=== PATIENT | male | born 1970 | race Caucasian/White ===

== ENCOUNTER 2021-06-23 19:52 | Emergency (ER) | payer SELFPAY ==
[~2021-06-23] VITALS: Ht 188 cm; Wt 113.0 kg
[2021-06-23 20:01] VITALS: BP 114/78
[2021-06-23] MEDS ORDERED: DIPH,PERTUSS(ACELL),TET VAC/PF 0.5 ML SYRINGE. VAX IM ONE ×2 (20:11→20:15)
[2021-06-23] MEDS ORDERED: LIDOCAINE 2%/EPI 1:100,000 20 ML VIAL. INJ ONE (20:15)
--- NOTE | 2021-06-23 21:14 | PHYS DOC ---
Past Medical History Past Surgical History: Appendectomy (PELON MENDOZA) Smoking Status: Current Every Day Smoker Alcohol Use: None (PELON MENDOZA) General Adult EDM: Chief Complaint: LACERATION/AVULSION HPI: HPI: Patient is a 50 year old male who presents with a laceration to the right distal ho. Patient states that he was at home chopping a tomato for dinner, when he dropped a knife and sliced his leg. Patient states he did not have any pain at the time, and only noticed that he had a laceration when he looked down and saw blood. Patient reports he was not able to get it to stop bleeding on the way to the emergency department. Patient states his tetanus vaccination is not up-to-date. Patient has no other trauma or complaints at this time. (PELON MENDOZA) Review of Systems: Review of Systems: ROS negative except as mentioned in HPI. (PELON MENDOZA) Heart Score: C/O Chest Pain: No (PELON MENDOZA) Current Medications: Current Medications Medications (Trade) Dose Ordered Sig/Anastasiya Start Time Stop Time Status Last Admin Dose Admin Diphtheria/ Tetanus/Acell Pertussis (ADACEL TDap SYRINGE) 0.5 ml STK-MED ONCE 06/23/21 20:11 06/23/21 20:11 DC Lidocaine/ Epinephrine (LIDOCAINE 2%-EPI 1:100,000 multi-dose) 20 ml 1X ONCE 06/23/21 20:15 06/23/21 20:16 DC 06/23/21 20:14 20 ML (PELON MENDOZA) Allergies: Allergies: Allergies Coded Allergies Type Severity Reaction Last Updated Verified No Known Drug Allergies 06/23/21 No (PELON MENDOZA) Physical Exam: PE: Constitutional: Well developed, well nourished, no acute distress, non-toxic appearance. [] HENT: Normocephalic, atraumatic, bilateral external ears normal, oropharynx moist, no oral exudates, nose normal. [] Eyes: PERRLA, EOMI, conjunctiva normal, no discharge. [] Neck: Normal range of motion, no tenderness, supple, no stridor. [] Cardiovascular:Heart rate regular rhythm, no murmur [] Lungs & Thorax: Bilateral breath sounds clear to auscultation [] Abdomen: Bowel sounds normal, soft, no tenderness, no masses, no pulsatile masses. [] Skin: Warm, dry, no erythema, no rash. [] Back: No tenderness, no CVA tenderness. [] Extremities: No tenderness, no cyanosis, no clubbing, ROM intact, no edema. [] Neurologic: Alert and oriented X 3, normal motor function, normal sensory function, no focal deficits noted. [] Psychologic: Affect normal, judgement normal, mood normal. [] (PELON MENDOZA) Current Patient Data: Vital Signs: Vital Signs Date Time Temp Pulse Resp B/P (MAP) Pulse Ox O2 Delivery O2 Flow Rate FiO2 06/23/21 20:01 97.9 82 16 114/78 (90) 98 Room Air 97.9 (PELON MENDOZA) Course & Med Decision Making: Course & Med Decision Making Pertinent Labs and Imaging studies reviewed. (See chart for details) Patient will receive tetanus vaccination in the department. Wound has stopped bleeding on exam. Patient is comfortable being discharged home. He is instructed not to submerge the wound, but he will be able to shower. 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 (PELON MENDOZA) Course & Med Decision Making Treatment plan and care provided by I was available for consult. Chart reviewed. (TEJ CARDENAS DO) Ajay Disclaimer: Ajay Disclaimer: This electronic medical record was generated, in whole or in part, using a voice recognition dictation system. (PELON MENDOZA) Laceration Repair Lac Repair Indication: Laceration to distal right ho Procedure: The patient was placed in the appropriate position and anesthesia around the laceration was 3 mL 2% lidocaine with epinephrine. The area was then cleansed with Betadine solution. The laceration was was closed with three 4-0 nylon simple interrupted sutures. There were no additional lacerations the wound area was then dressed with Xeroform and gauze wrap. Total repaired wound length: 3.5 cm. Other Items: The patient tolerated the procedure very well. Complications: There were no complications. (PELON MENDOZA) Departure Departure Impression: Primary Impression: Laceration without foreign body Disposition: 01 HOME / SELF CARE / HOMELESS Condition: STABLE Patient Instructions: Sutured Wound Care, [id number] Additional Instructions: Please do not submerge the sutured wound in water for a period longer than 2 minutes. While at work, please keep the sutures protected either with gauze or large Band-Aid. Return to the emergency department if you develop a fever, if the wound has purulent drainage, or if the wound margins become warm and red. PELON MENDOZA Jun 23, 2021 21:14 TEJ CARDENAS DO Jun 24, 2021 23:46
== END 2021-06-23 21:35 | disposition home or self-care (01) ==
LOC: ER 19:52
DX: S81.811A Laceration without foreign body, right lower leg, initial encounter (principal); F17.200 Nicotine dependence, unspecified, uncomplicated; W26.0XXA Contact with knife, initial encounter; Y93.89 Activity, other specified; Y92.89 Other specified places as the place of occurrence of the external cause; Y99.8 Other external cause status
CPT/HCPCS: 12002; 90471; 90715; 99283; J3490